=== PATIENT | male | born 1945 | race Caucasian/White ===

== ENCOUNTER → 2016-07-03 | Outpatient (CLI) | payer BC, MEDICARE ==
[2016-07-03 21:50] LABS: ALT 38 U/L (21-72); AST 31 U/L (17-59); Alkaline Phosphatase 108 U/L (38-126); Anion Gap 13 mmol/L; Blood Urea Nitrogen 13 mg/dL (9-20); Calcium 10.1 mg/dL (8.4-10.2); Carbon Dioxide 25 mmol/L (22-30); Chloride 105 mmol/L (98-107); Cholesterol 126 mg/dL (<200); Glucose 180 mg/dL (74-99); HDL Cholesterol 47 mg/dL (40-60); Non-African American GFR(MDRD) >60 (>60 ml/min/1.73 sqM); Potassium 4.6 mmol/L (3.5-5.1); Sodium 143 mmol/L (137-145); Total Bilirubin 0.9 mg/dL (0.2-1.3); Total Protein 7.5 g/dL (6.3-8.2); Triglycerides 88 mg/dL (<150)
[2016-07-03 22:11] LABS: Hemoglobin A1C 7.2 % (4.2-6.1)
== END | disposition home or self-care (01) ==
LOC: MMGSC 11:10
PROVIDERS: ATTEND Family Medicine
DX: E11.9 Type 2 diabetes mellitus without complications (principal); I10 Essential (primary) hypertension; E78.5 Hyperlipidemia, unspecified
CPT/HCPCS: 36415; 80053; 80061; 83036

== ENCOUNTER → 2016-08-07 | Outpatient (CLI) | payer BC, MEDICARE ==
[2016-08-07 19:20] LABS: Anion Gap 12 mmol/L; Blood Urea Nitrogen 15 mg/dL (9-20); Calcium 9.5 mg/dL (8.4-10.2); Carbon Dioxide 24 mmol/L (22-30); Chloride 106 mmol/L (98-107); Glucose 166 mg/dL (74-99); Non-African American GFR(MDRD) >60 (>60 ml/min/1.73 sqM); Potassium 4.1 mmol/L (3.5-5.1); Sodium 142 mmol/L (137-145)
== END | disposition home or self-care (01) ==
LOC: MMGSC 09:28
PROVIDERS: ATTEND Family Medicine
DX: E11.9 Type 2 diabetes mellitus without complications (principal); I10 Essential (primary) hypertension; Z51.81 Encounter for therapeutic drug level monitoring
CPT/HCPCS: 36415; 80048; 82043; 82570

== ENCOUNTER → 2016-12-31 | Outpatient (CLI) | payer BC, MEDICARE | END | disposition home or self-care (01) | LOC: MMGSC 12:00 | PROVIDERS: ATTEND Family Medicine | DX: E11.9 Type 2 diabetes mellitus without complications (principal) | CPT/HCPCS: 36415; 83036 ==

== ENCOUNTER → 2017-01-01 | Outpatient (CLI) | payer BC, MEDICARE ==
[2017-01-01 19:39] LABS: ALT 35 U/L (21-72); AST 26 U/L (17-59); Alkaline Phosphatase 64 U/L (38-126); Anion Gap 14 mmol/L; Blood Urea Nitrogen 14 mg/dL (9-20); Calcium 9.7 mg/dL (8.4-10.2); Carbon Dioxide 25 mmol/L (22-30); Chloride 102 mmol/L (98-107); Cholesterol 125 mg/dL (<200); Glucose 141 mg/dL (74-99); HDL Cholesterol 35 mg/dL (40-60); Non-African American GFR(MDRD) >60 (>60 ml/min/1.73 sqM); Sodium 141 mmol/L (137-145); Total Bilirubin 1.4 mg/dL (0.2-1.3); Total Protein 7.2 g/dL (6.3-8.2)
== END | disposition home or self-care (01) ==
LOC: MMGSC 12:09
PROVIDERS: ATTEND Family Medicine
DX: E78.5 Hyperlipidemia, unspecified (principal); I10 Essential (primary) hypertension
CPT/HCPCS: 36415; 80053; 80061

== ENCOUNTER 2020-07-27 13:00 | Day surgery (SDC) | payer MEDICARE ==
[2020-07-26 10:42] VITALS: BMI 32.6
[~2020-07-27 13:00] MED LIST: MOXIFLOXACIN HCL 0.5% DROPS 3 ML BTL OP PRN; TETRACAINE 0.5% OPHTH (PF) DROPS 4 ML BTL OP PRN; TIMOLOL 0.5% OPHTH DROPS 5 ML BTL OP PRN
[2020-07-27] MEDS: CYCLOPENTOLATE 1% OPHTH SOLN 2 ML BTL OP PRN ×3 (13:25→13:37)
[2020-07-27] MEDS: PHENYLEPHRINE 2.5% OPHTH DRP 2ML OP PRN ×3 (13:28→13:40)
[2020-07-27 13:29] VITALS: TEMP 97
[2020-07-27] MEDS ORDERED: LACTATED RINGERS 1,000 ML IV ONE (13:35)
[2020-07-27] MEDS ORDERED: LIDOCAINE 1% (10MG/ML) FOR IV START INTRADERMA ONE (13:35)
[2020-07-27 13:47] LABS: Glucose,Whole Blood 161 mg/dL (75-99)
[2020-07-27] MEDS ORDERED: fentaNYL (PF) 50 MCG/ML 2 ML AMP ONE (14:55)
[2020-07-27] MEDS ORDERED: BALANCED SALT IRRIG SOLN COMB2 15 ML IRRIG.SOLN IRRIGATION ONE (14:55)
[2020-07-27] MEDS ORDERED: MIDAZOLAM 2 MG/2 ML VIAL ONE (14:55)
[2020-07-27] MEDS ORDERED: HYALURONATE SODIUM INTRAOCULAR 1 EACH SYRINGE (12MG/ML) INTRAOCULA ONE (14:55)
[2020-07-27] MEDS ORDERED: LIDOCAINE 1% (PF) 10MG/ML VIAL SQ ONE (14:56)
[2020-07-27] MEDS ORDERED: EPINEPHrine (PF) 0.3 ML in BALANCED SALT IRRIG SOLN COMB2 500 ML IRRIGATION ONE (15:06)
--- NOTE | 2020-07-27 15:25 | P.OP ---
Date of Procedure: 07/27/20 Preoperative Diagnosis: NS & CS Postoperative Diagnosis: same Procedure(s) Performed: PIOL, OS Implants: MX60E 20.50 Anesthesia: MAC Surgeon: Dino Sims Pathology: none sent Condition: stable Disposition: same day Indications for Procedure: blurry vision Operative Findings: No complications
[2020-07-27 15:39] VITALS: RESP 18
[2020-07-27 15:46] VITALS: BP 112/71; PULSE 84
--- NOTE | 2020-07-29 07:21 | OP ---
OPERATIVE REPORT DATE OF SERVICE: 07/27/2020 PROCEDURE: Phacoemulsification of cataract and intraocular lens implant of the left eye. 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 POSTOPERATIVE DIAGNOSES: Nuclear sclerosis and cortical sclerosis. OPERATION: Clear cornea phacoemulsification of cataract left eye. ESTIMATED BLOOD LOSS: Zero. SPECIMEN TAKEN: None. NARRATIVE: After obtaining the appropriate consent, the patient was brought to the Operating Room where the patient was placed under cardiac monitoring and prepped and draped in the usual sterile manner. At the 5 o'clock position a 15 degree super sharp blade was used to create a paracentesis followed by instillation of 1% Xylocaine MPF 50:50 mix with BSS into the anterior chamber. This was followed by Amvisc to stabilize the anterior chamber. At the 3 o'clock position a self-sealing corneal flap incision was created using 2.8 mm yan keratome. A cystotome was used to initiate a continuous tear capsulorrhexis which was completed with the Utrata forceps. A Binkhorst cannula was used to hydrodissect the lens nucleus followed by hydrodelineation. Phacoemulsification of the lens was performed utilizing phacochop in 16.46 seconds at 17% power. The remaining cortical material was removed using the irrigation aspiration mode followed by additional 1% Xylocaine MPF into the anterior chamber followed by viscoelastic to stabilize the capsular bag. A [employer] MX60E 20.5 diopters posterior chamber lens was placed into the capsular bag without difficulty. The remaining viscoelastic material was removed from the anterior chamber with the irrigation/aspiration. Balanced salt solution was used to normalize the intraocular pressure. The incision was checked for watertight integrity. The patient then received two drops of 0.5% timolol followed by two drops Vigamox, was lightly patched and shielded in the usual manner. There were no complications from the procedure. The patient tolerated the procedure well and was returned to recovery in good condition. MMODL / IJN: [id number] /
== END 2020-07-27 16:03 | disposition home or self-care (01) ==
LOC: OR 13:00
PROVIDERS: ATTEND Ophthalmology
DX: H25.13 Age-related nuclear cataract, bilateral (principal); H25.013 Cortical age-related cataract, bilateral; H35.3111 Nonexudative age-related macular degeneration, right eye, early dry stage; E11.9 Type 2 diabetes mellitus without complications; H52.223 Regular astigmatism, bilateral; H00.026 Hordeolum internum left eye, unspecified eyelid; H00.023 Hordeolum internum right eye, unspecified eyelid; H52.4 Presbyopia; H52.13 Myopia, bilateral; M54.9 Dorsalgia, unspecified; E78.5 Hyperlipidemia, unspecified; N40.0 Benign prostatic hyperplasia without lower urinary tract symptoms; Z95.5 Presence of coronary angioplasty implant and graft; I11.9 Hypertensive heart disease without heart failure; K21.9 Gastro-esophageal reflux disease without esophagitis; Z90.89 Acquired absence of other organs; Z82.3 Family history of stroke; Z80.9 Family history of malignant neoplasm, unspecified; Z79.84 Long term (current) use of oral hypoglycemic drugs; Z79.82 Long term (current) use of aspirin; Z79.899 Other long term (current) drug therapy
CPT/HCPCS: 66984; C1780; J2250; J0171; J3010; J2001

== ENCOUNTER 2020-08-10 09:38 | Day surgery (SDC) | payer MEDICARE ==
[2020-08-05 15:43] VITALS: BMI 33.4
[~2020-08-10 09:38] MED LIST changes: +LIDOCAINE 1% (10MG/ML) FOR IV START INTRADERMA PRN; +ONDANSETRON 4 MG/2 ML VIAL IVP ONE
[2020-08-10] MEDS: CYCLOPENTOLATE 1% OPHTH SOLN 2 ML BTL OP PRN ×3 (09:55→10:07)
[2020-08-10] MEDS: PHENYLEPHRINE 2.5% OPHTH DRP 2ML OP PRN ×3 (09:58→10:11)
[2020-08-10 10:01] VITALS: TEMP 97.5
[2020-08-10 10:08] LABS: Glucose,Whole Blood 181 mg/dL (75-99)
[2020-08-10] MEDS: LACTATED RINGERS 1,000 ML IV SCH ×2 (10:08→11:11)
[2020-08-10] MEDS ORDERED: fentaNYL (PF) 50 MCG/ML 2 ML AMP ONE (11:08)
[2020-08-10] MEDS ORDERED: MIDAZOLAM 2 MG/2 ML VIAL ONE (11:08)
[2020-08-10] MEDS ORDERED: LIDOCAINE 1% (PF) 10MG/ML VIAL MISCELLANE ONE (11:22)
[2020-08-10] MEDS ORDERED: HYALURONATE SODIUM INTRAOCULAR 1 EACH SYRINGE (12MG/ML) INTRAOCULA ONE (11:22)
[2020-08-10] MEDS ORDERED: BALANCED SALT IRRIG SOLN COMB2 15 ML IRRIG.SOLN IRRIGATION ONE (11:22)
[2020-08-10] MEDS ORDERED: EPINEPHrine (PF) 0.3 ML in BALANCED SALT IRRIG SOLN COMB2 500 ML IRRIGATION ONE (11:23)
--- NOTE | 2020-08-10 11:38 | P.OP ---
Date of Procedure: 08/10/20 Preoperative Diagnosis: NS & CS Postoperative Diagnosis: same Procedure(s) Performed: PIOL, OD Implants: MX60E 21.00 Anesthesia: MAC Surgeon: Dino Sims Condition: stable Disposition: same day Indications for Procedure: blurry vision Operative Findings: no complications
[2020-08-10 11:48] VITALS: RESP 16
[2020-08-10 12:00] VITALS: BP 123/69; PULSE 95
--- NOTE | 2020-08-11 06:56 | OP ---
OPERATIVE REPORT DATE OF SERVICE: August 10, 2020 PROCEDURE PERFORMED: Phacoemulsification of cataract and intraocular lens implant of the right eye. PREOPERATIVE DIAGNOSIS: Nuclear sclerosis. Cortical sclerosis. POSTOPERATIVE DIAGNOSIS: Nuclear sclerosis. Cortical sclerosis. OPERATION: Clear cornea phacoemulsification of cataract OD eye. ESTIMATED BLOOD LOSS: Zero. SPECIMEN TAKEN: None. NARRATIVE: After obtaining the appropriate consent, the patient was brought to the Operating Room where the patient was placed under cardiac monitoring and prepped and draped in the usual sterile manner. At the 11 o'clock position a 15 degree super sharp blade was used to create a paracentesis followed by instillation of 1% Xylocaine MPF 50:50 mix with BSS into the anterior chamber. This was followed by Amvisc to stabilize the anterior chamber. At the 9 o'clock position a self-sealing corneal flap incision was created using 2.8 mm yan keratome. A cystotome was used to initiate a continuous tear capsulorrhexis which was completed with the Utrata forceps. A Binkhorst cannula was used to hydrodissect the lens nucleus followed by hydrodelineation. Phacoemulsification of the lens was performed utilizing phacochop in 14.78 seconds at 14% power. The remaining cortical material was removed using the irrigation aspiration mode followed by additional 1% Xylocaine MPF into the anterior chamber followed by viscoelastic to stabilize the capsular bag. A [employer]ch [employer] Lomb MX 60E 21.0 diopter posterior chamber lens was placed into the capsular bag without difficulty. The remaining viscoelastic material was removed from the anterior chamber with the irrigation/aspiration. Balanced salt solution was used to normalize the intraocular pressure. The incision was checked for watertight integrity. The patient then received two drops of 0.5% timolol followed by two drops Vigamox, was lightly patched and shielded in the usual manner. There were no complications from the procedure. The patient tolerated the procedure well and was returned to recovery in good condition. MMODL / IJN: [id number] /
== END 2020-08-10 12:07 | disposition home or self-care (01) ==
LOC: OR 09:38
PROVIDERS: ATTEND Ophthalmology
DX: E11.36 Type 2 diabetes mellitus with diabetic cataract (principal); H25.11 Age-related nuclear cataract, right eye; H25.011 Cortical age-related cataract, right eye; H35.3111 Nonexudative age-related macular degeneration, right eye, early dry stage; H52.13 Myopia, bilateral; H00.023 Hordeolum internum right eye, unspecified eyelid; H00.026 Hordeolum internum left eye, unspecified eyelid; H52.223 Regular astigmatism, bilateral; H52.4 Presbyopia; Z98.42 Cataract extraction status, left eye; Z96.1 Presence of intraocular lens; K21.9 Gastro-esophageal reflux disease without esophagitis; I25.10 Atherosclerotic heart disease of native coronary artery without angina pectoris; I11.9 Hypertensive heart disease without heart failure; Z80.9 Family history of malignant neoplasm, unspecified; Z82.3 Family history of stroke; Z95.5 Presence of coronary angioplasty implant and graft; Z79.84 Long term (current) use of oral hypoglycemic drugs; Z79.82 Long term (current) use of aspirin; Z79.891 Long term (current) use of opiate analgesic; Z79.899 Other long term (current) drug therapy
CPT/HCPCS: 66984; C1780; J2250; J0171; J3010; J2001

== ENCOUNTER → 2023-02-14 | Outpatient (CLI) | payer MEDICARE ==
[2023-02-14 14:12] LABS: African American GFR (CKD) 21 (>60 ml/min/1.73 sqM); Blood Urea Nitrogen 55 mg/dL (9-20); Non-African American GFR(CKD) 18 (>60 ml/min/1.73 sqM)
== END | disposition home or self-care (01) ==
LOC: RADCTMAIN 13:08
PROVIDERS: ATTEND Urology
DX: R31.0 Gross hematuria (principal)
CPT/HCPCS: 82565; 84520

== ENCOUNTER → 2023-03-12 | Outpatient (CLI) | payer MEDICARE ==
[2023-03-12 16:56] LABS: Basophils # (A) 0.04 X 10*3/uL (0.00-0.10); Basophils % (A) 0.4 %; Eosinophils # (A) 0.27 X 10*3/uL (0.04-0.35); Eosinophils % (A) 2.4 %; HCT 40.3 % (39.6-50.0); HGB 13.3 g/dL (13.0-17.0); Lymphocytes # (A) 3.12 X 10*3/uL (0.90-5.00); Lymphocytes % (A) 27.6 %; MCH 30.6 pg (27.0-32.0); MCV 92.6 FL (80.0-97.0); Mean Platelet Volume 12.4 FL (9.5-12.2); Monocytes # (A) 0.96 X 10*3/uL (0.20-1.00); Monocytes % (A) 8.5 %; NRBC Per 100 WBC 0 X 10*3/uL (0.00-0.01); Neutrophils # (A) 6.87 X 10*3/uL (1.80-7.70); Neutrophils % (A) 60.6 %; Platelet Count 222 X 10*3/uL (140-440); RBC 4.35 X 10*6/uL (4.40-5.60); RDW 13.3 % (11.5-14.5); WBC 11.32 X 10*3/uL (4.50-10.00)
[2023-03-12 17:11] LABS: Appearance,Urine Clear (Clear); Bilirubin,Urine Negative (Negative); Blood,Urine Negative (Negative); Color,Urine Yellow (Yellow); Ketones,Urine Trace (Negative); Nitrite,Urine Negative (Negative); Specific Gravity,Urine 1.019 (1.001-1.030); Urobilinogen,Urine 0.2 E.U./DL
[2023-03-12 17:17] LABS: BUN/Creat Ratio 20.69 Ratio (12.00-20.00); Blood Urea Nitrogen 53.8 mg/dL (9.0-27.0); Calcium 8.2 mg/dL (8.7-10.3); Carbon Dioxide 20.6 mmol/L (21.6-31.8); Chloride 102 mmol/L (96-109); Glucose 89 mg/dL (70-110); Potassium 4.5 mmol/L (3.5-5.5); Sodium 138 mmol/L (135-145)
[2023-03-12 17:30] LABS: Amorphous Sediment,Urine Present (None Seen); Bacteria,Urine None Seen (None Seen)
== END | disposition home or self-care (01) ==
LOC: LABPAT 11:10
PROVIDERS: ATTEND Urology
DX: Z01.812 Encounter for preprocedural laboratory examination (principal); N21.9 Calculus of lower urinary tract, unspecified; R31.0 Gross hematuria
CPT/HCPCS: 80048; 81001; 85025; 87086

== ENCOUNTER 2023-03-19 12:57 | Day surgery (SDC) | payer MEDICARE ==
[2023-03-13 12:26] VITALS: BMI 29.6
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
[~2023-03-19 12:57] MED LIST changes: +DEXAMETHASONE SOD PHOSPHATE 4 MG/ML 1 ML VIAL IV ONE; +HYDROmorphone 0.5 MG/0.5 ML SYRINGE IVP PRN; +LACTATED RINGERS 1,000 ML IV SCH; +MIDAZOLAM 2 MG/2 ML VIAL IV PRN; -MOXIFLOXACIN HCL 0.5% DROPS 3 ML BTL OP PRN; -TETRACAINE 0.5% OPHTH (PF) DROPS 4 ML BTL OP PRN; -TIMOLOL 0.5% OPHTH DROPS 5 ML BTL OP PRN
--- NOTE | 2023-03-19 13:40 | XR ---
EXAMINATION TYPE: XR KUB DATE OF EXAM: 03/19/2023 Comparison: None Clinical History: 77-year-old male Bladder stone Findings: Nonobstructive bowel gas pattern. Tortuous splenic artery calcifications suggested. There appears to be a mildly tortuous and calcified ascending thoracic aorta. Multiple pelvic phlebolith. Additional vascular calcifications in the pelvis. There is a 2.7 x 1.5 cm oval density in the right side of the pelvis. No significant stool burden. Impression: A 2.7 x 1.5 cm oval density in the right side of the pelvis may correspond to the patient's bladder c alculus.
[2023-03-19 13:56] LABS: Glucose,Whole Blood 124 mg/dL (70-110)
[2023-03-19] MEDS ORDERED: NEOSTIGMINE 1 MG/ML 10 ML VIAL ONE (14:02)
[2023-03-19] MEDS ORDERED: fentaNYL (PF) 50 MCG/ML 2 ML AMP ONE (14:02)
[2023-03-19] MEDS ORDERED: SUCCINYLCHOLINE CHLORIDE 200 MG/10 ML VIAL IV ONE (14:02)
[2023-03-19] MEDS ORDERED: PROPOFOL 10 MG/ML 20 ML VIAL IV ONE (14:02)
[2023-03-19] MEDS ORDERED: ROCURONIUM 10 MG/ML (5 ML VIAL) IV ONE (14:02)
[2023-03-19] MEDS ORDERED: LIDOCAINE 1% INJ 10MG/ML (20 ML MDV) ONE (14:02)
[2023-03-19] MEDS ORDERED: GLYCOPYRROLATE 0.2 MG/ML 2 ML VIAL ONE (14:02)
[2023-03-19] MEDS ORDERED: LACTATED RINGERS 1,000 ML IV ONE (14:58)
[2023-03-19] MEDS ORDERED: IOPAMIDOL-370 100ML BTL MISCELLANE ONE (15:09)
--- NOTE | 2023-03-19 16:13 | P.OP ---
Date of Procedure: 03/19/23 Preoperative Diagnosis: Bladder stone, gross hematuria Postoperative Diagnosis: Bladder stone, gross hematuria, right ureteral stone Procedure(s) Performed: Cystoscopy, cystolitholapaxy (>2.5 cm), bilateral retrograde pyelogram, right ureteroscopy, homing laser lithotripsy, stone basketing and stent insertion Anesthesia: CORA Surgeon: Franco Cho Estimated Blood Loss (ml): 25 Pathology: other (Bladder stone, right ureteral stone) Condition: stable Disposition: PACU Indications for Procedure: This is a 77-year-old male with history of gross hematuria, underwent a cystoscopy that showed evidence of a bladder stone. On the morning of KUB stone measured 2.7 cm. discussed that given this finding of gross hematuria and bladder stone I do recommend proceeding with a cystolitholapaxy. Aware the risk which includes but not limited to bleeding, infection, injury to the bladder. Discussed also given the gross hematuria we will do a bilateral retrograde pyelogram to evaluate the upper tracts. He understood all the risk and agreed to proceed Operative Findings: Large bladder stone, large prostate with a large median lobe with intravesical extension, left retrograde pyelogram showed dilated distal ureter but no filling defect and no evidence of hydronephrosis, and delayed images there was excellent drainage of contrast. Right retrograde pyelogram showed filling defect on ureteroscopy there was a large right ureteral stone Description of Procedure: Patient brought to the operating room, general anesthesia was induced. He was prepped and draped in sterile fashion and placed in dorsolithotomy position. Cystoscopy through the 21 Japanese sheath was inserted per urethra, cystoscopy was performed which showed a large bladder stone, in addition patient had a trilobar hyperplasia with significant median lobe with intravesical extension. There was some prostatic backbleeding given the degree of median lobe enlargement. Using the homing laser the stone was fragmented, stone fragments were irrigated out. Repeat cystoscopy showed no additional sizable stone fragments, or injury to the bladder or any abnormality within the bladder. At this time attention was then carried to the right ureteral orifice, retrograde pyelogram was performed on the right side which showed a large filling defect in the distal ureter with hydroureteronephrosis, at this time a sensor wire was advanced through the catheter and the catheter was removed with the wire in place. At this time a semirigid ureteroscope was inserted per urethra and advanced up the right ureteral orifice, ureteroscopy was performed showed a large stone in the distal ureter using the homing laser the stone was fragmented, sizable stone fragments were removed using the stone basket. At this time the ureteroscope was advanced all the way up to the UPJ which showed no additional stones, at this point repeat retrograde pyelogram was performed through the ureteroscope which showed no filling defect in the kidney. Pullback ureteroscopy was performed showing no injury to the ureter or any sizable fragments as ureteroscope was withdrawn and a sensor wire was advanced through. Next a ureteral stent was passed over the wire, the proximal curl was visualized on fluoroscopy and the distal curl was visualized using the cystoscope. Attention was then carried to the left ureteral orifice which was intubated with an open-ended catheter, retrograde pyelogram was performed showed a dilated distal ureter but no filling defect, the ureter was torturous, there was no evidence of hydronephrosis or filling defect in the kidney. Delayed images were obtained which showed excellent drainage of contrast from the collecting system. At this time the bladder was emptied. A 20 Japanese coud catheter was placed with a return of blood-tinged urine. The catheter was irrigated to clear. Patient tolerated procedure well was taken to recovery in stable condition
[2023-03-19 16:22] LABS: Glucose,Whole Blood 176 mg/dL (70-110)
[2023-03-19 16:28] VITALS: RESP 18; TEMP 97.4
[2023-03-19 17:45] VITALS: BP 152/78; PULSE 76
--- NOTE | 2023-03-19 18:26 | FL ---
EXAMINATION TYPE: FL urography retrograde DATE OF EXAM: 03/19/2023 FLUOROSCOPY DAP: 1.25 Gycm2. 1 MIN 57 SECS FL. RT URETRAL STENT PLACEMENT. BLADDER STONES. 11 images submitted.
== END 2023-03-19 17:45 | disposition home or self-care (01) ==
LOC: OR 12:57
PROVIDERS: ATTEND Urology
DX: N21.0 Calculus in bladder (principal); N20.1 Calculus of ureter; E11.9 Type 2 diabetes mellitus without complications; K21.9 Gastro-esophageal reflux disease without esophagitis; E78.5 Hyperlipidemia, unspecified; I25.2 Old myocardial infarction; Z79.82 Long term (current) use of aspirin; Z79.899 Other long term (current) drug therapy
CPT/HCPCS: 52356; 82365; 74420; 74018; C2625; C1758; C1769; J0330; J1100; J2710; J0690; J2405; J2001; J3010; J2704; Q9967

== ENCOUNTER 2023-03-23 03:36 | Emergency (ER) | payer MEDICARE ==
[2023-03-23 03:50] VITALS: RESP 18; TEMP 97.6
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
[2023-03-23 06:43] LABS: Appearance,Urine Cloudy (Clear); Bacteria,Urine Occasional /hpf; Bilirubin,Urine Negative (Negative); Blood,Urine Large (Negative); Color,Urine Dark Brown; Glucose,Urine (UA) Negative (Negative); Hyaline Casts,Urine 5 /lpf (0-2); Ketones,Urine Negative (Negative); Leukocyte Esterase,Urine Trace (Negative); Mucus,Urine Rare /hpf; Nitrite,Urine Positive (Negative); PH, Urine 5.5 (5.0-8.0); Protein,Urine 2+ (Negative); RBC,Urine >182 /hpf (0-5); WBC,Urine 43 /hpf (0-5)
[2023-03-23 07:21] VITALS: BP 142/60; PULSE 105
== END 2023-03-23 06:59 | disposition home or self-care (01) ==
LOC: EC 03:36
DX: R33.9 Retention of urine, unspecified (principal); E11.9 Type 2 diabetes mellitus without complications; E78.5 Hyperlipidemia, unspecified; I10 Essential (primary) hypertension; I25.2 Old myocardial infarction; K21.9 Gastro-esophageal reflux disease without esophagitis; Z79.899 Other long term (current) drug therapy; Z79.84 Long term (current) use of oral hypoglycemic drugs; Z79.02 Long term (current) use of antithrombotics/antiplatelets
CPT/HCPCS: 51702; 81001; 87086; 99284

== ENCOUNTER → 2023-05-02 | Outpatient (CLI) | payer MEDICARE ==
[2023-05-02 18:10] LABS: Basophils # (A) 0.06 X 10*3/uL (0.00-0.10); Basophils % (A) 0.7 %; Eosinophils # (A) 0.28 X 10*3/uL (0.04-0.35); Eosinophils % (A) 3.2 %; HCT 37.8 % (39.6-50.0); HGB 12.4 g/dL (13.0-17.0); Lymphocytes # (A) 2.31 X 10*3/uL (0.90-5.00); Lymphocytes % (A) 26.2 %; MCH 31.3 pg (27.0-32.0); MCHC 32.8 g/dL (32.0-37.0); MCV 95.5 FL (80.0-97.0); Mean Platelet Volume 11.2 FL (9.5-12.2); Monocytes # (A) 0.95 X 10*3/uL (0.20-1.00); Monocytes % (A) 10.8 %; NRBC Per 100 WBC 0 X 10*3/uL (0.00-0.01); Neutrophils # (A) 5.13 X 10*3/uL (1.80-7.70); Neutrophils % (A) 58.2 %; Platelet Count 230 X 10*3/uL (140-440); RBC 3.96 X 10*6/uL (4.40-5.60); WBC 8.81 X 10*3/uL (4.50-10.00)
[2023-05-02 18:38] LABS: Appearance,Urine Turbid (Clear); Bilirubin,Urine Negative (Negative); Blood,Urine Trace (Negative); Color,Urine Yellow (Yellow); Ketones,Urine Negative (Negative); Nitrite,Urine Positive (Negative); Urobilinogen,Urine 0.2 E.U./DL
[2023-05-02 19:07] LABS: BUN/Creat Ratio 15.47 Ratio (12.00-20.00); Blood Urea Nitrogen 23.2 mg/dL (9.0-27.0); Calcium 9.3 mg/dL (8.7-10.3); Carbon Dioxide 19.4 mmol/L (21.6-31.8); Glucose 155 mg/dL (70-110)
[2023-05-02 19:10] LABS: Chloride 108 mmol/L (96-109); Potassium 4.5 mmol/L (3.5-5.5); Sodium 140 mmol/L (135-145)
[2023-05-02 19:19] LABS: Amorphous Sediment,Urine Present (None Seen); Bacteria,Urine 3+ (None Seen); Yeast (UA) Present (None Seen)
== END | disposition home or self-care (01) ==
LOC: LABWHC1 09:44
PROVIDERS: ATTEND Urology
DX: Z01.812 Encounter for preprocedural laboratory examination (principal); N40.1 Benign prostatic hyperplasia with lower urinary tract symptoms
CPT/HCPCS: 36415; 80048; 81001; 85025; 86850; 86900; 86901; 87086

== ENCOUNTER 2023-05-10 09:42 | Day surgery (SDC) | payer MEDICARE ==
[2023-05-08 15:46] VITALS: BMI 28.8
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
[~2023-05-10 09:42] MED LIST changes: -DEXAMETHASONE SOD PHOSPHATE 4 MG/ML 1 ML VIAL IV ONE; -LACTATED RINGERS 1,000 ML IV SCH; -ONDANSETRON 4 MG/2 ML VIAL IVP ONE
[2023-05-10 10:41] LABS: Glucose,Whole Blood 168 mg/dL (70-110)
[2023-05-10] MEDS: METOPROLOL TARTRATE 5 MG/5 ML VIAL IVP ONE ×2 (10:45→11:05)
[2023-05-10] MEDS: LACTATED RINGERS 1,000 ML IV SCH (10:45)
[2023-05-10] MEDS: ONDANSETRON 4 MG/2 ML VIAL IVP ONE ×3 (10:45→18:44)
[2023-05-10] MEDS: MIDAZOLAM 2 MG/2 ML VIAL IVP ONE (10:52)
[2023-05-10] MEDS: METOCLOPRAMIDE 5 MG/ML 2 ML VIAL IVP ONE (11:05)
[2023-05-10] MEDS ORDERED: ONDANSETRON 4 MG/2 ML VIAL IVP PRN (11:35)
[2023-05-10] MEDS: LACTATED RINGERS 1,000 ML IV ONE (11:36)
[2023-05-10] MEDS ORDERED: GLYCOPYRROLATE 0.2 MG/ML 2 ML VIAL ONE (11:41)
[2023-05-10] MEDS ORDERED: DEXAMETHASONE SOD PHOSPHATE 4 MG/ML 1 ML VIAL ONE (11:41)
[2023-05-10] MEDS ORDERED: SUCCINYLCHOLINE CHLORIDE 200 MG/10 ML VIAL IV ONE (11:41)
[2023-05-10] MEDS ORDERED: ROPIVACAINE 5 MG/ML 30 ML VIAL ONE (11:41)
[2023-05-10] MEDS ORDERED: HYDROmorphone (PF) 1 MG/ML ONE (11:41)
[2023-05-10] MEDS ORDERED: fentaNYL (PF) 50 MCG/ML 2 ML AMP ONE (11:41)
[2023-05-10] MEDS ORDERED: ROCURONIUM 10 MG/ML (5 ML VIAL) IV ONE (11:41)
[2023-05-10] MEDS ORDERED: PROPOFOL 10 MG/ML 20 ML VIAL IV ONE (11:41)
[2023-05-10] MEDS ORDERED: MIDAZOLAM 2 MG/2 ML VIAL ONE (11:41)
[2023-05-10] MEDS ORDERED: NEOSTIGMINE 1 MG/ML 10 ML VIAL ONE (11:41)
[2023-05-10] MEDS ORDERED: SUGAMMADEX SODIUM 200 MG/2 ML SDV IV ONE (11:41)
[2023-05-10] MEDS ORDERED: LIDOCAINE 1% INJ 10MG/ML (20 ML MDV) ONE (11:41)
--- NOTE | 2023-05-10 12:17 | P.ANPRN ---
Procedure Note - Anesthesia - Nerve Block Performed Bilateral Erector Spinae Single Time Out Performed: Yes Date of Procedure: 05/10/23 Procedure Start Time: 10:57 Procedure Stop Time: 11:07 Location of Patient: PreOp Indication: Acute Post-Operative Pain, Analgesia, Requested by Surgeon Sedation Type: Sedate with meaningful contact maintained Preparation: Sterile Prep Position: Sitting Catheter: None Needle Types: Pajunk Needle Gauge: 21 Ultrasound used to visualize needle placement: Yes Ultrasound used to observe medication spread: Yes Injectate: 0.5% Ropivacaine (see comment for volume) (Ropiv 20ml+decadron 4mg----each side) Blood Aspirated: No Pain Paresthesia on Injection Noted: No Resistance on Injection: Normal Image Stored and Saved: Yes Events: Uneventful and Well Tolerated
[2023-05-10] MEDS: BUPIVACAINE (PF) 0.25% 30 ML VIAL SQ ONE ×2 (12:24→15:08)
--- NOTE | 2023-05-10 15:19 | P.OP ---
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 He has failed multiple trial of void. Cystoscopy showed evidence of significant prostate enlargement with a significant median lobe. His prostate size on transrectal ultrasound measured greater than 110 g, option of a robotic simple prostatectomy versus a HoLEP was discussed with him in detail. Aware the risk and benefit of each approach. He agreed to proceed with robotic simple prostatectomy, aware of the risk which includes but not limited to bleeding, infection, urinary incontinence, erectlie l dysfunction, retrograde ejaculation, and persistent retention. Risk of injury to nearby organs was also discussed. He understood all the risk and agreed to proceed Description of Procedure: After preoperative antibiotics were started, the patient was taken to the operating room. Anesthesia was induced and the patient was placed in a supine position with adequate padding of the pressure points, shoulders, back, legs and arms. He was then prepped and draped in the standard fashion. A critical pause was performed using two patient identifiers. A 16F torres catheter was placed to gravity drainage. A pneumoperitoneum was obtained using a Veress needle, after pneumoperitoneum was obtained a 8 mm camera port was placed. Under direct vision a 8mm robotic ports was placed lateral to each rectus slightly below the camera port. The left iliac fossa 8mm port was placed. The right assistant pressman right iliac fossa 12mm port and right paramedian 5mm portwere placed. After the patient was placed in the trendelenberg position, the robot was then docked to the 8mm robotic ports and then each robotic arm and tower was checked in relation to the patient's legs and hands to avoid inadvertent compression. The peritoneal cavity was inspected. Adhesions were taken down along the left lower quadrant An inverted U-shaped incision began laterally to the left medial umbilical ligament and extended high across the midline to the right umbilical ligament. The limbs of the "U" extended to the level of the vasa on both sides. We next developed the preperitoneal space and the space of Retzius. Cautery was used to dissected the bladder away from the prostate, the incision was made in close proximity to the prostate, and incision was extended laterally and at this point the plane between the adenoma and the surgical capsule is identified. There was significant edema in the bladder, the target going ridge was identified and it was away from the bladder neck dissection, but the ureteral orifices could not be clearly visualized given the degree of the edema but it was away from the bladder neck incision. The adenoma was dissected off of the capsule by combination of blunt dissection and minimum cautery. dissection was initially started along the anterior surface and posterior surface of adenoma, and this was carried laterally. The dissection was carried to the apex, at this point the urethral-prostatic junction was visualized and the prostate was transected at the junction. Prostate adenoma was placed in an endocatch bag . A 9and 6 inch 3-0 V-Lock suture was used to anastomose the urethra and bladder, starting at the 6:00 posterior position. Mucosa was secured in every stitch, to ensure a mucosa to mucosa anastomosis. The stitch was regularly cinched and the anastomosis tightened. . The 20 Fr Torres catheter was advanced, the bladder filled, and the anastomosis was tested. Anastomsis was watertight at 150 mL. balloon was inflated to 10 mL The robot was undocked. specimen was extracted from the supraumbilical incision. The periumbilical fascia was closed with 1-0-PDS suture in figure of 8 fashion. All ports were closed with a subcuticular 4-0 monocryl and Dermabond. Sponge, instrument, and needle counts were correct at the end of the case x2. The patient tolerated the surgery well and without complication. He awoke without difficulty and was taken to the recovery room in stable condition
[2023-05-10] MEDS: KETOROLAC 15 MG/ML 1 ML VIAL IVP SCH (17:15)
[2023-05-10 17:19] LABS: Glucose,Whole Blood 262 mg/dL (70-110)
[2023-05-10] MEDS: INSULIN ASPART (NovoLOG) 100 UNIT/ML VIAL SQ ONE (17:32)
[2023-05-10] MEDS: SODIUM CHLORIDE 0.9% 1,000 ML IV SCH (17:35)
[2023-05-10] MEDS: DEXAMETHASONE SOD PHOSPHATE 4 MG/ML 1 ML VIAL IV ONE (18:44)
[2023-05-10] MEDS: HEPARIN SODIUM,PORCINE 5,000 UNIT/ML 1 ML VIAL SQ SCH (19:41)
[2023-05-10] MEDS: metFORMIN 500 MG TAB PO SCH (19:43)
[2023-05-10 20:00] LABS: Glucose,Whole Blood 205 mg/dL (70-110)
[2023-05-10] MEDS: METOPROLOL TARTRATE 50 MG TAB PO SCH (20:26)
[2023-05-10] MEDS: diphenhydrAMINE 25 MG CAP PO SCH (20:26)
[2023-05-10] MEDS: ATORVASTATIN 40 MG TAB PO SCH (20:26)
[2023-05-10] MEDS: ACETAMINOPHEN TAB 500 MG TAB PO SCH (20:26)
[2023-05-10] MEDS: SULFAMETHOX-TMP 800-160MG 1 EACH TAB PO SCH (20:27)
[2023-05-11] MEDS: HYDROmorphone 1 MG/ML 1 ML SYRINGE IVP PRN (01:22)
[2023-05-11 07:04] LABS: Glucose,Whole Blood 168 mg/dL (70-110)
[2023-05-11 08:47] VITALS: BP 136/68; PULSE 95; RESP 18; TEMP 97.6
--- NOTE | 2023-05-11 09:23 | P.DS ---
Providers Attending physician: Franco Cho MD Primary care physician: [facility] Course: The patient was admitted to the hospital yesterday for a robotic assisted suprapubic prostatectomy. This was done without difficulty. The patient tolerated the procedure well. He did well last night with minimal pain. He tolerated diet and has ambulated. His condition is good. His urine is clear. His abdomen was soft. He is ready for discharge home. He will follow-up in the office in 1 week. He will go home with a catheter. He has been given a prescription of [place]. Postoperative instructions given. He has been encouraged to contact us with problems. Patient Condition at Discharge: Good Plan - Discharge Summary Discharge Rx Participant: No New Discharge Prescriptions: New HYDROcodone/APAP 5-325MG [[place] 5-325] 1 tab PO Q4HR PRN #14 tab PRN Reason: Pain No Action metFORMIN HCL [Glucophage] 1,000 mg PO BID Atorvastatin [Lipitor] 40 mg PO HS Tamsulosin HCl [Flomax] 0.4 mg PO HS Omeprazole [PriLOSEC] 20 mg PO QAM Lisinopril-Hctz 20-25 mg [Zestoretic 20-25] 1 tab PO QAM Aspirin EC [Ecotrin Low Dose] 81 mg PO DAILY Ergocalciferol [Vitamin D2 (1250 Mcg = 21168 Iu)] 1,250 mcg PO MO Metoprolol Tartrate [Lopressor] 50 mg PO BID Glimepiride [Amaryl] 2 mg PO DAILY Acetaminophen/Diphenhydramine [Tylenol PM 500-25mg] 1 tab PO HS Clopidogrel [Plavix] 75 mg PO DAILY Semaglutide [Ozempic] 2 mg SQ SA Furosemide [Lasix] 20 mg PO QAM Areds (Unknown Dose) 2 capsule PO BID Sulfamethox-Tmp 800-160Mg [Bactrim DS 800-160 mg] 1 tab PO Q12HR Discharge Medication List Atorvastatin [Lipitor] 40 mg PO HS 07/25/15 [History] metFORMIN HCL [Glucophage] 1,000 mg PO BID 07/25/15 [History] Aspirin EC [Ecotrin Low Dose] 81 mg PO DAILY 07/26/20 [History] Glimepiride [Amaryl] 2 mg PO DAILY 07/26/20 [History] Lisinopril-Hctz 20-25 mg [Zestoretic 20-25] 1 tab PO QAM 07/26/20 [History] Metoprolol Tartrate [Lopressor] 50 mg PO BID 07/26/20 [History] Omeprazole [PriLOSEC] 20 mg PO QAM 07/26/20 [History] Tamsulosin HCl [Flomax] 0.4 mg PO HS 07/26/20 [History] Acetaminophen/Diphenhydramine [Tylenol PM 500-25mg] 1 tab PO HS 08/05/20 [History] Clopidogrel [Plavix] 75 mg PO DAILY 03/13/23 [History] Ergocalciferol [Vitamin D2 (1250 Mcg = 59090 Iu)] 1,250 mcg PO MO 03/13/23 [History] Furosemide [Lasix] 20 mg PO QAM 03/13/23 [History] Semaglutide [Ozempic] 2 mg SQ SA 03/13/23 [History] Areds (Unknown Dose) 2 capsule PO BID 05/08/23 [History] Sulfamethox-Tmp 800-160Mg [Bactrim DS 800-160 mg] 1 tab PO Q12HR 05/09/23 [History] HYDROcodone/APAP 5-325MG [[place] 5-325] 1 tab PO Q4HR PRN #14 tab 05/11/23 [Rx] Follow up Appointment(s)/Referral(s): Franco Cho MD [STAFF PHYSICIAN] - 1 Week Discharge Disposition: HOME SELF-CARE
[2023-05-11] MEDS: LISINOPRIL-HCTZ 20-25 MG 1 EACH TAB PO SCH (09:57)
[2023-05-11] MEDS: GLIMEPIRIDE 2 MG TAB PO SCH (09:58)
[2023-05-11] MEDS: FUROSEMIDE 20 MG TAB PO SCH (09:59)
[2023-05-11] MEDS: PANTOPRAZOLE 40 MG TABLET PO SCH (09:59)
[2023-05-13] MEDS ORDERED: ERGOCALCIFEROL 1,250 MCG (50,000 IU) CAPSULE PO SCH (09:00)
== END 2023-05-11 12:27 | disposition home or self-care (01) ==
LOC: OR 09:42 → 5NMEDONC 15:29 → OR 05-11 12:27
PROVIDERS: ATTEND Urology
DX: N40.1 Benign prostatic hyperplasia with lower urinary tract symptoms (principal); E11.9 Type 2 diabetes mellitus without complications; I25.2 Old myocardial infarction; K21.9 Gastro-esophageal reflux disease without esophagitis; G89.18 Other acute postprocedural pain; I10 Essential (primary) hypertension; E78.5 Hyperlipidemia, unspecified; Z90.89 Acquired absence of other organs; Z95.5 Presence of coronary angioplasty implant and graft; Z79.82 Long term (current) use of aspirin; Z79.84 Long term (current) use of oral hypoglycemic drugs; Z79.899 Other long term (current) drug therapy; Z87.442 Personal history of urinary calculi
CPT/HCPCS: 55867; S2900; 64999; 88307

== ENCOUNTER 2024-09-08 19:18 | Observation (INO) | payer MEDICARE ==
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
[2024-09-08] MEDS: SODIUM CHLORIDE 0.9% 1,000 ML IV ONE (19:36)
[2024-09-08 19:47] LABS: Basophils # (A) 0.07 10*3/uL (0.00-0.10); Basophils % (A) 0.6 %; Eosinophils # (A) 0.29 10*3/uL (0.04-0.35); Eosinophils % (A) 2.6 %; HCT 37.0 % (39.6-50.0); HGB 12.5 g/dL (13.0-17.0); Lymphocytes # (A) 2.35 10*3/uL (0.90-5.00); Lymphocytes % (A) 21.4 %; MCH 31.8 pg (27.0-32.0); MCHC 33.8 g/dL (32.0-37.0); MCV 94.1 fL (80.0-97.0); Monocytes # (A) 1.15 10*3/uL (0.20-1.00); Monocytes % (A) 10.5 %; Neutrophils # (A) 6.85 10*3/uL (1.80-7.70); Neutrophils % (A) 62.4 %; Platelet Count 347 10*3/uL (140-440); RBC 3.93 10*6/uL (4.40-5.60); RDW 14.2 % (11.5-14.5); WBC 10.99 10*3/uL (4.50-10.00)
[2024-09-08 20:07] LABS: ALT 43 U/L (4-49); AST 32 U/L (17-59); African American GFR (CKD) 23 (>60 ml/min/1.73 sqM); Albumin 3.3 g/dL (3.5-5.0); Alkaline Phosphatase 130 U/L (38-126); Anion Gap 10 mmol/L; Blood Urea Nitrogen 59 mg/dL (9-20); Calcium 8.6 mg/dL (8.4-10.2); Carbon Dioxide 24 mmol/L (22-30); Chloride 101 mmol/L (98-107); Glucose 223 mg/dL (74-99); Magnesium 1.6 mg/dL (1.6-2.3); Non-African American GFR(CKD) 20 (>60 ml/min/1.73 sqM); Potassium 4.4 mmol/L (3.5-5.1); Sodium 135 mmol/L (137-145); Total Protein 5.9 g/dL (6.3-8.2)
[2024-09-08 20:16] LABS: NT-Pro-B-Type Natriuretic Pept 274 pg/mL
[2024-09-08 20:23] LABS: INR 1.0 (<1.2); Partial Thromboplastin Time 24.2 sec (22.0-30.0); Prothrombin Time 11.0 sec (10.0-12.5)
[2024-09-08] MEDS: ENOXAPARIN 100 MG/ML SYRINGE SQ STA (20:56)
[2024-09-08] MEDS ORDERED: HYDROmorphone 1 MG/ML 1 ML SYRINGE IVP PRN (21:33)
[2024-09-08] MEDS ORDERED: ONDANSETRON 4 MG/2 ML VIAL IVP PRN (21:35)
[2024-09-08] MEDS ORDERED: NALOXONE 0.4 MG/ML 1 ML VIAL IV PRN (21:35)
[2024-09-08] MEDS: SODIUM CHLORIDE 0.9% 1,000 ML IV SCH (21:40)
--- NOTE | 2024-09-08 21:43 | XR ---
EXAMINATION TYPE: XR chest 2V DATE OF EXAM: 09/08/2024 8:32 PM COMPARISON: None. CLINICAL INDICATION: Male, 78 years old with history of sob, TECHNIQUE: XR chest 2V view(s) obtained. FINDINGS: The heart size is normal. The pulmonary vasculature is normal. The lungs are clear. IMPRESSION: 1. No acute pulmonary process. [facility], Workstation: [facility], 09/08/2024 9:41 PM
[2024-09-08] MEDS: HYDROmorphone 1 MG/ML 1 ML SYRINGE IVP STA (21:46)
[2024-09-08 23:13] LABS: Glucose,Whole Blood 161 mg/dL (70-110)
[2024-09-09 05:57] LABS: Glucose,Whole Blood 103 mg/dL (70-110)
--- NOTE | 2024-09-09 07:12 | US ---
EXAMINATION TYPE: US venous doppler duplex LE BI DATE OF EXAM: 09/09/2024 12:21 AM COMPARISON: NONE CLINICAL INDICATION: Male, 78 years old with history of DVT; no hx DVT per patient. Currently on thin ners that were given in the ER. Swelling and pain. TECHNIQUE: The lower extremity deep venous system is examined utilizing real time linear array sonog usha with graded compression, doppler sonography and color-flow sonography. Grayscale, color doppler , spectral doppler imaging performed of the deep veins of the lower extremities FINDINGS: SIDE PERFORMED: Bilateral VESSELS IMAGED: Common Femoral Vein Deep Femoral Vein Greater Saphenous Vein * Femoral Vein Popliteal Vein Small Saphenous Vein * Proximal Calf Veins (* superficial vessels) Right Leg: appears negative for DVT; There is normal flow, compressibility, vascular waveforms. Left Leg: appears negative for dvt; There is normal flow, compressibility, vascular waveforms. IMPRESSION: No evidence for DVT within the bilateral lower extremities imaged from the groin to the upper calves. [facility], , 09/09/2024 7:10 AM
[2024-09-09 09:39] VITALS: RESP 18; TEMP 97.7
--- NOTE | 2024-09-09 09:44 | NM ---
EXAMINATION TYPE: NM pul vent and perfuse DATE OF EXAM: 09/09/2024 CLINICAL INDICATION: Male, 78 years old with history of PE; shortness of breath COMPARISON: Chest 09/08/2024 TECHNIQUE: Utilizing inhalation of 62.0 mCi Tc 99m DTPA aerosol and intravenous injection of 5.3 mCi of Tc 99m MAA, ventilation and perfusion images are acquired post injection in multiple projections. FINDINGS: Normal radiotracer distribution is noted in the lungs. There is no evidence of mismatched defects. IMPRESSION: No mismatched defects to suggest pulmonary embolus by PIOPED criteria. [facility], Workstation: [id number], 09/09/2024 9:42 AM
[2024-09-09 11:06] VITALS: BP 113/69; PULSE 89
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
[2024-09-09 11:40] LABS: Glucose,Whole Blood 132 mg/dL (70-110)
[2024-09-09] MEDS: INSULIN GLARGINE (LANTUS) 100 UNIT/ML SYR SQ SCH (12:14)
[2024-09-09] MEDS ORDERED: ASPIRIN 81 MG PO SCH (17:00)
[2024-09-09] MEDS ORDERED: METOPROLOL TARTRATE 50 MG TAB PO SCH (17:00)
[2024-09-09] MEDS ORDERED: TAMSULOSIN 0.4 MG CAP.ER.24H PO SCH (21:00)
[2024-09-09] MEDS ORDERED: ATORVASTATIN 40 MG TAB PO SCH (21:00)
[2024-09-09] MEDS ORDERED: CLOPIDOGREL 75 MG TAB PO SCH (21:00)
== END 2024-09-09 13:37 ==
LOC: EC 19:18 → 3SCARD 21:36
PROVIDERS: ADMIT Hospitalist; ATTEND Hospitalist
DX: R79.89 Other specified abnormal findings of blood chemistry (principal); G89.18 Other acute postprocedural pain; E78.5 Hyperlipidemia, unspecified; K21.9 Gastro-esophageal reflux disease without esophagitis; I12.9 Hypertensive chronic kidney disease with stage 1 through stage 4 chronic kidney disease, or unspecified chronic kidney disease; N18.4 Chronic kidney disease, stage 4 (severe); E11.22 Type 2 diabetes mellitus with diabetic chronic kidney disease; I25.2 Old myocardial infarction; Z85.828 Personal history of other malignant neoplasm of skin; Z95.5 Presence of coronary angioplasty implant and graft; Z79.899 Other long term (current) drug therapy; Z79.84 Long term (current) use of oral hypoglycemic drugs; Z79.82 Long term (current) use of aspirin; Z79.02 Long term (current) use of antithrombotics/antiplatelets; Z79.4 Long term (current) use of insulin; Z79.85 Long-term (current) use of injectable non-insulin antidiabetic drugs
CPT/HCPCS: 96361; 96372; 96374; 99284; 36415; 94760; 93005; 85379; 83880; 80053; 83735; 84100; 84484; 85025; 85610; 85730; 71046; 93970; 78582; G0378 ×2; A9540; A9567; J1650; J1171